=== PATIENT | female | born 1945 | race African-American/Black ===

== ENCOUNTER → 2018-07-24 | Day surgery (SDC) | payer MEDICARE ==
[2018-07-22 12:12] LABS: BASOPHILS % 0.5 % (0.0-1.0); EOSINOPHILS # (AUTO) 0.2 (0.0-0.4); EOSINOPHILS % 2.3 % (0.0-6.0); HEMATOCRIT 35.9 % (34.2-44.1); HEMOGLOBIN 11.8 g/dL (12.0-16.0); LYMPHOCYTES # (AUTO) 3.3 (1.0-3.2); LYMPHOCYTES % 41.6 % (18.0-39.1); MEAN CORPUSCULAR HEMOGLOBIN 29.9 pg (28-32); MEAN CORPUSCULAR HGB CONC 32.9 g/dL (31-35); MEAN CORPUSCULAR VOLUME 91.1 fL (81-99); MONOCYTES # (AUTO) 0.4 (0.2-0.8); MONOCYTES % 5.5 % (4.4-11.3); NEUTROPHILS % 49.8 % (38.7-80.0); PLATELET COUNT 247 x10e3/uL (140-360); RED BLOOD COUNT 3.94 x10e6/uL (3.6-5.1); RED CELL DISTRIBUTION WIDTH 13.3 % (11.7-14.4)
--- NOTE | 2018-07-22 13:10 | Diagnostic Imaging Report ---
EXAM: CHEST 2 VIEWS DATE: 07/22/2018 11:17 AM INDICATION: Preadmit, ganglion left thumb COMPARISON: None FINDINGS: Lines and tubes: None Heart size normal. The ascending thoracic aorta appears ectatic, particularly on the lateral view. No focal pulmonary opacity, pleural effusion or pneumothorax. Upper abdomen unremarkable. No acute bony abnormality. IMPRESSION: No evidence for acute disease. Likely ectasia of the ascending thoracic aorta. Signed by: Dr. Stephen Denton M.D. on 07/22/2018 1:07 PM
[~2018-07-24] MED LIST: ASPIR 8181 MG PO; BUPIVACAINE HCL 0.5% INJ 30 ML VIAL INJ ONE; CEFAZOLIN SOD 1 GM/NS 50ML 100 ML IV ONE; DEXAMETHASONE SOD PHOS INJ 4 MG/ML VIAL ONE; FENTANYL CITRATE/PF 100MCG/2 ML INJ ONE; HYDRALAZINE HCL 20 MG/ML VIAL ONE; KETOROLAC TROMETHAMINE 30 MG/ML VIAL ONE; LABETALOL HCL 20 MG/4 ML SYRINGE IV ONE; LIDOCAINE HCL 2% LOCAL INJ 5 ML SDV VIAL INJ ONE; METOCLOPRAMIDE HCL 10 MG/2ML VIAL ONE; NORVASC5 MG PO; ONDANSETRON HCL INJ 2MG/ML 2ML 2 MG/ML VIAL ONE; PANTOPRAZOLE SO40 MG PO; PROPOFOL IV EMULSION 10 MG/ML 20 ML VIAL ONE; QUINAPRIL HCL20 MG PO; SEVOFLURANE INHAL SOLN 250 ML PEN BTL ONE; TYLENOL COLD &1 EACH PO; TYLENOL WITH C1 EACH PO
--- OUTSIDE RECORDS SUMMARY | 2018-07-24 07:13 | XMS REPORT ---
Author Author [facility] Address Unknown Phone Unavailable Care Team Providers Care Sports Umpire Name Role Phone ELIANA SUAREZ Unavailable Unavailable Problems This patient has no known problems. Allergies, Adverse Reactions, Alerts This patient has no known allergies or adverse reactions. Medications This patient has no known medications. Results Test Description Test Time Test Comments Text Results Atomic Results Result Comments CHEST 2 VIEWS 2018-07-22 13:05:00 [place] [address] Patient Name: ELIAN RENAE MR #: [id number] : 1945 Age/Sex: 73/F Req #: [id number] Adm Physician: Ordered by: ELIANA SUAREZ MD Report #: [id number] Location: OR Room/Bed: Procedure: [id number] DX/CHEST 2 VIEWS Exam Date: Exam Time: REPORT STATUS: Signed EXAM: CHEST 2 VIEWS DATE: 07/22/2018 11:17 AM INDICATION: Preadmit, ganglion left thumb COMPARISON: None FINDINGS: Lines and tubes: None Heart size normal. The ascending thoracic aorta appears ectatic, particularly on the lateral view. No focal pulmonary opacity, pleural effusion or pneumothorax. Upper abdomen unremarkable. No acute bony abnormality. IMPRESSION: No evidence for acute disease. Likely ectasia of the ascending thoracic aorta. Signed by: Dr. Courtney Sahu M.D. on 07/22/2018 1:07 PM Dictated By: COURTNEY SAHU MD 1306 Transcribed By: MARY on 07/22/18 1302 COPY TO: ELIANA SUAREZ MD
--- OUTSIDE RECORDS SUMMARY | 2018-07-24 07:13 | XMS REPORT | Clinical Summary ---
Author Author [facility] Address Unknown Phone Unavailable Care Team Providers Care Kiln Firer Name Role Phone Julius Melo MD PCP Allergies No Known Allergies Medications End Date Status Medication Sig Dispensed Refills Start Date Active pantoprazole (PROTONIX) Take 40 mg by 0 40 MG EC tablet mouth daily. 8 Active quinapril (ACCUPRIL) 40 Take 40 mg by 0 07/21/ MG tablet mouth daily. 8 Active acyclovir (ZOVIRAX) 400 Take 800 mg 0 MG tablet by mouth daily. Active hydroCHLOROthiazide Take 25 mg by 0 (HYDRODIURIL) 25 MG mouth daily. tablet Active aspirin (ECOTRIN) 81 MG Take 81 mg by 0 enteric coated tablet mouth daily. Active amLODIPine (NORVASC) 5 mg Take 5 mg by 0 tablet mouth daily. 09/24/2017 hydroCHLOROthiazide Take 1 tablet 30 tablet 0 (HYDRODIURIL) 25 MG (25 mg total) 8 tablet by mouth daily for 30 days. 02/25/2018 tiZANidine (ZANAFLEX) 2 Take 1 tablet 20 tablet 0 MG tablet (2 mg total) 8 by mouth every 8 (eight) hours as needed for muscle spasms for up to 30 days. 02/05/2018 acetaminophen-codeine Take 1-2 15 tablet 0 (TYLENOL WITH CODEINE #3) tablets by 8 300-30 mg per tablet mouth every 6 (six) hours as needed for moderate pain for up to 10 days. Active Problems Not on file Encounters Care Team Description Date Type Specialty Danielle Lyles DO Pain of left upper extremity (Primary Dx); Essential hypertension 01/26/2018 Emergency Emergency Medicine Norinsky, Amilcar B., Hypertension, unspecified type (Primary Dx) 08/25/2017 Emergency Emergency Medicine after 07/23/2017 Social History Date Tobacco Use Types Packs/Day Years Used Never Smoker Smokeless Tobacco: Never Used Alcohol Use Drinks/Week oz/Week Comments Yes Social drinker. Sex Assigned at Date Recorded Not on file Industry Job Start Date Occupation Not on file Not on file Not on file Travel End Travel History Travel Start No recent travel history available. Last Filed Vital Signs Time Taken Vital Sign Reading 01/26/2018 3:15 PM CDT Blood Pressure 186/85 01/26/2018 3:15 PM CDT Pulse 72 01/26/2018 10:38 AM CDT Temperature 37.1 C (98.7 F) 01/26/2018 3:15 PM CDT Respiratory Rate 18 01/26/2018 3:15 PM CDT Oxygen Saturation 99% - Inhaled Oxygen - Concentration 01/26/2018 10:57 AM CDT Weight 59 kg (130 lb) 01/26/2018 10:38 AM CDT Height 149.9 cm (4' 11") 01/26/2018 10:57 AM CDT Body Mass Index 26.26 Plan of Treatment Health Maintenance Due Date Last Done Comments BREAST CANCER SCREENING 1997 COLON CANCER SCREENING 1997 SHINGLES VACCINES (#1) 1997 65+ PNEUMOCOCCAL VACCINE 2012 (1 of 2 - PCV13) PNEUMOCOCCAL 2012 POLYSACCHARIDE VACCINE AGE 65 AND OVER INFLUENZA VACCINE 12/19/2017 Procedures Comments Procedure Name Priority Date/Time Associated Diagnosis TROPONIN Timed 01/26/2018 2:35 PM CDT ECG 12-LEAD STAT 01/26/2018 11:01 AM CDT ZZESTIMATED GFR STAT 01/26/2018 10:49 AM CDT B NATRIURETIC PEPTIDE STAT 01/26/2018 10:49 AM CDT TROPONIN STAT 01/26/2018 10:49 AM CDT COMPREHENSIVE METABOLIC STAT 01/26/2018 PANEL 10:49 AM CDT HC COMPLETE BLD COUNT STAT 01/26/2018 W/AUTO DIFF 10:49 AM CDT ECG ED PRELIMINARY Routine 01/26/2018 INTERPRETATION 10:39 AM CDT URINALYSIS SCREEN AND Routine 08/25/2017 MICROSCOPY, WITH REFLEX 12:56 PM CDT TO CULTURE URINE CULTURE Routine 08/25/2017 12:56 PM CDT XR CHEST 1 VW PORTABLE STAT 08/25/2017 12:05 PM CDT ZZESTIMATED GFR STAT 08/25/2017 11:40 AM CDT CREATINE KINASE, TOTAL STAT 08/25/2017 (CPK) 11:40 AM CDT B NATRIURETIC PEPTIDE STAT 08/25/2017 11:40 AM CDT TROPONIN STAT 08/25/2017 11:40 AM CDT BASIC METABOLIC PANEL STAT 08/25/2017 11:40 AM CDT HC COMPLETE BLD COUNT STAT 08/25/2017 W/AUTO DIFF 11:[address] HEAD WO CONTRAST STAT 08/25/2017 11:37 AM CDT ECG ED PRELIMINARY Routine 08/25/2017 INTERPRETATION 10:44 AM CDT ECG 12-LEAD STAT 08/25/2017 10:36 AM CDT after 07/23/2017 Results * Troponin (01/26/2018 2:35 PM CDT) Only the most recent of 3 results within the time period is included. Troponin <0.30 0.00 - 0.30 ng/mL [facility] DEPARTMENT OF Comment: PATHOLOGY AND 0.11 - 1.49 GENOMIC MEDICINE ng/mlMay indicate increased risk of acute coronary syndrome. >=1.5 ng/ml Consistent with acute myocardial infarction. The diagnostic value of a single normal or non-diagnostic result is questionable.Serial samples at 2-6 hour intervals are required to rule out acute myocardial injury. Specimen Plasma specimen Performing Organization Address City/State/Zipcode Phone Number [facility] DEPARTMENT OF [address] [place] [address] PATHOLOGY AND GENOMIC MEDICINE * ECG 12 lead (01/26/2018 11:01 AM CDT) Only the most recent of 2 results within the time period is included. Ventricular rate 67 [facility] Atrial rate 67 [facility] AL interval 180 [facility] QRSD interval 94 [facility] QT interval 382 [facility] QTC interval 403 [facility] P axis 1 63 [facility] QRS axis 1 15 [facility] T wave axis 115 [facility] EKG impression Normal sinus rhythm-T wave [facility] abnormality, consider lateral ischemia-Abnormal ECG-In automated comparison with ECG of 25-AUG-2017 10:36,-No significant change was found- Performing Organization Address [facility] Phone Number [facility] [address] [place] [address] * Estimated GFR (01/26/2018 10:49 AM CDT) Only the most recent of 2 results within the time period is included. GFR Non Af Amer 49 (A) mL/min/1.73 m2 [facility] DE[facility]MENT OF PATHOLOGY AND GENOMIC MEDICINE GFR Af Amer 59 (A) mL/min/1.73 m2 [facility] DEPARTMENT OF Comment: PATHOLOGY AND Chronic kidney disease: <60 GENOMIC MEDICINE mL/min/1.73m2 Kidney failure: <15 mL/min/1.73m2 The estimated GFR is calculated from the IDMS-traceable Modification of Diet in Renal Disease Equation. The accuracy of the calculation is poor when the creatinine is normal. Calculated values >90 mL/min/1.73m2 are not reported. This equation has not been validated in children (<18 years), women, the elderly (>70 years), or ethnic groups other than Caucasians and Americans. Specimen Plasma specimen Performing Organization Address City/State/Zipcode Phone Number [facility] DEPARTMENT OF [address] [place] [address] PATHOLOGY AND GENOMIC MEDICINE * CBC with platelet and differential (01/26/2018 10:49 AM CDT) Only the most recent of 2 results within the time period is included. WBC 7.6 4.2 - 11.0 k/uL [facility] DE[facility] OF PATHOLOGY AND GENOMIC MEDICINE RBC 3.54 (L) 4.04 - 5.86 m/uL [facility] DE[facility]MENT OF PATHOLOGY AND GENOMIC MEDICINE HGB 11.0 (L) 11.5 - 15.3 g/dL [facility]MENT OF PATHOLOGY AND GENOMIC MEDICINE HCT 34.6 34.0 - 45.0 % [facility] DE[facility] OF PATHOLOGY AND GENOMIC MEDICINE MCV 97.7 80.0 - 98.0 fL [facility] OF PATHOLOGY AND GENOMIC MEDICINE MCH 31.1 27.0 - 34.0 pg [facility] DE[facility]MENT OF PATHOLOGY AND GENOMIC MEDICINE MCHC 31.8 31.5 - 36.5 g/dL [facility] DE[facility]MENT OF PATHOLOGY AND GENOMIC MEDICINE RDW - SD 49.6 37.0 - 51.0 fL [facility] OF PATHOLOGY AND GENOMIC MEDICINE MPV 10.3 7.4 - 10.4 fL [facility] OF PATHOLOGY AND GENOMIC MEDICINE Platelet count 213 150 - 400 k/uL [facility] OF PATHOLOGY AND GENOMIC MEDICINE Nucleated RBC 0.00 /100 WBC [facility] OF PATHOLOGY AND GENOMIC MEDICINE Neutrophils 57.3 36.0 - 66.0 % [facility] OF PATHOLOGY AND GENOMIC MEDICINE Lymphocytes 34.9 24.0 - 44.0 % [facility] OF PATHOLOGY AND GENOMIC MEDICINE Monocytes 4.0 0.0 - 6.0 % [facility] OF PATHOLOGY AND GENOMIC MEDICINE Eosinophils 3.2 0.0 - 6.0 % [facility] OF PATHOLOGY AND GENOMIC MEDICINE Basophils 0.3 0.0 - 1.2 % [facility] OF PATHOLOGY AND GENOMIC MEDICINE Immature granulocytes 0.3 0.0 - 1.0 % [facility] OF PATHOLOGY AND GENOMIC MEDICINE Specimen Blood Performing Organization Address City/[facility]/[place] [address] PATHOLOGY AND GENOMIC MEDICINE * B natriuretic peptide (01/26/2018 10:49 AM CDT) Only the most recent of 2 results within the time period is included. BNP 15 0 - 100 pg/mL [facility] OF PATHOLOGY AND GENOMIC MEDICINE Specimen Blood Performing Organization Address City/[facility]/Zipcode Phone Number [facility] [address] [place] [address] PATHOLOGY AND GENOMIC MEDICINE * Comprehensive metabolic panel (01/26/2018 10:49 AM CDT) Sodium 140 135 - 150 mEq/L [facility] OF PATHOLOGY AND GENOMIC MEDICINE Potassium 3.8 3.5 - 5.0 mEq/L [facility] OF PATHOLOGY AND GENOMIC MEDICINE Chloride 106 98 - 112 mEq/L [facility] OF PATHOLOGY AND GENOMIC MEDICINE CO2 24 24 - 31 mmol/L [facility] OF PATHOLOGY AND GENOMIC MEDICINE Anion gap 10@ANIO 7 - 15 mEq/L [facility] OF PATHOLOGY AND GENOMIC MEDICINE BUN 21 (H) 7 - 18 mg/dL [facility] OF PATHOLOGY AND GENOMIC MEDICINE Creatinine 1.10 (H) 0.50 - 0.90 mg/dL [facility] OF PATHOLOGY AND GENOMIC MEDICINE Glucose 199 (H) 65 - 100 mg/dL [facility] OF PATHOLOGY AND GENOMIC MEDICINE Calcium 8.7 (L) 8.8 - 10.2 mg/dL [facility] OF PATHOLOGY AND GENOMIC MEDICINE Protein 6.6 6.3 - 8.3 g/dL [facility] OF PATHOLOGY AND GENOMIC MEDICINE Albumin 3.6 3.5 - 5.0 g/dL [facility] OF PATHOLOGY AND GENOMIC MEDICINE A/G ratio 1.2 0.7 - 3.8 [facility] OF PATHOLOGY AND GENOMIC MEDICINE Alkaline phosphatase 85 0 - 104 U/L [facility] OF PATHOLOGY AND GENOMIC MEDICINE AST 19 10 - 35 U/L [facility] OF PATHOLOGY AND GENOMIC MEDICINE ALT 15 5 - 50 U/L [facility] OF PATHOLOGY AND GENOMIC MEDICINE Total bilirubin 0.3 0.2 - 1.2 mg/dL [facility] OF PATHOLOGY AND GENOMIC MEDICINE Specimen Plasma specimen Performing Organization Address City/State/Zipcode Phone Number [facility] DEPARTMENT OF [facility] [place] [address] PATHOLOGY AND GENOMIC MEDICINE * ECG ED Preliminary Interpretation - NOT AN ORDER (01/26/2018 10:39 AM CDT) Only the most recent of 2 results within the time period is included. Narrative Performed At Danielle Lyles DO 01/26/20182:51 PM ECG ED Preliminary Interpretation - Not an Order Performed by: DANIELLE LYLES Authorized by: DANIELLE LYLES ECG reviewed by ED Physician in the absence of a bulkhead carpenter: yes Previous ECG: Previous ECG:Compared to current Comparison ECG info:08/25/17 Similarity:No change Interpretation: Interpretation: normal Rate: ECG rate:67 ECG rate assessment: normal Rhythm: Rhythm: sinus rhythm Ectopy: Ectopy: none QRS: QRS axis:Normal Conduction: Conduction: normal ST segments: ST segments:Non-specific T waves: T waves: inverted Inverted:I and aVL * Urinalysis screen and microscopy, with reflex to culture (08/25/2017 12:56 PM CDT) Specimen site Clean catch [facility] OF PATHOLOGY AND GENOMIC MEDICINE Color, UA Straw [facility] OF PATHOLOGY AND GENOMIC MEDICINE Appearance, UA Clear [facility] OF PATHOLOGY AND GENOMIC MEDICINE Specific gravity, UA 1.014 1.001 - 1.035 [facility] OF PATHOLOGY AND GENOMIC MEDICINE pH, UA 6.0 5.0 - 8.5 [facility] OF PATHOLOGY AND GENOMIC MEDICINE Protein, UA Negative Negative [facility] OF PATHOLOGY AND GENOMIC MEDICINE Glucose, UA 1+ (A) Negative [facility] OF PATHOLOGY AND GENOMIC MEDICINE Ketones, UA Negative Negative [facility] OF PATHOLOGY AND GENOMIC MEDICINE Bilirubin, UA Negative Negative [facility] OF PATHOLOGY AND GENOMIC MEDICINE Blood, UA Negative Negative [facility] OF PATHOLOGY AND GENOMIC MEDICINE Nitrite, UA Negative Negative [facility] OF PATHOLOGY AND GENOMIC MEDICINE Urobilinogen, UA Negative <2.0 [facility] OF PATHOLOGY AND GENOMIC MEDICINE Leukocyte esterase, UA Negative Negative [facility] OF PATHOLOGY AND GENOMIC MEDICINE WBC, UA 1 0 - 5 /HPF [facility] OF PATHOLOGY AND GENOMIC MEDICINE RBC, UA 2 0 - 5 /HPF [facility] OF PATHOLOGY AND GENOMIC MEDICINE Bacteria, UA None seen None seen [facility] OF PATHOLOGY AND GENOMIC MEDICINE Yeast, UA None seen [facility] OF PATHOLOGY AND GENOMIC MEDICINE Yeast with pseudohyphae, None seen [facility] OF UA PATHOLOGY AND GENOMIC MEDICINE Specimen Urine Performing Organization Address [facility]ode Phone Number [address] [address] PATHOLOGY AND GENOMIC MEDICINE * Urine culture (08/25/2017 12:56 PM CDT) Urine culture SEE COMMENTComment: [facility] DEPARTMENT OF Bacteriuria screen negative. PATHOLOGY AND GENOMIC MEDICINE Specimen Urine Performing Organization Address [facility] Centercode Phone Number [address] [address] PATHOLOGY AND GENOMIC MEDICINE * XR Chest 1 Vw Portable (08/25/2017 12:05 PM CDT) Narrative Performed At EXAMINATION:XR CHEST 1 VW PORTABLE [facility] CLINICAL HISTORY:Hypertension XR CHEST 1 VW PORTABLEimages are submitted COMPARISON:NONE FINDINGS: The cardiac silhouette is normal in size. The pulmonary vasculature is within normal limits. The lung zones have no focal area of consolidation. There is no pleural effusion or pneumothorax. IMPRESSION: 1. There is no acute cardiopulmonary disease. [id number] Procedure Note Hm Interface, Radiology Results Incoming - 08/25/2017 12:11 PM CDT EXAMINATION: XR CHEST 1 VW PORTABLE CLINICAL HISTORY: Hypertension XR CHEST 1 VW PORTABLE images are submitted COMPARISON: NONE FINDINGS: The cardiac silhouette is normal in size. The pulmonary vasculature is within normal limits. The lung zones have no focal area of consolidation. There is no pleural effusion or pneumothorax. IMPRESSION: 1. There is no acute cardiopulmonary disease. [facility]-[id number] Performing Organization Address City/State/Zipcode Phone Number [facility] [address] [place] [address] * Creatine kinase, total (CPK) (08/25/2017 11:40 AM CDT) Creatine kinase 98 61 - 224 U/L [facility] DE[facility]MENT OF PATHOLOGY AND GENOMIC MEDICINE Specimen Plasma specimen Performing Organization Address City/[facility]/Zipcode Phone Number [address] [address] PATHOLOGY AND GENOMIC MEDICINE * Basic metabolic panel (08/25/2017 11:40 AM CDT) Sodium 142 135 - 150 mEq/L [facility]MENT OF PATHOLOGY AND GENOMIC MEDICINE Potassium 3.7 3.5 - 5.0 mEq/L [facility] OF PATHOLOGY AND GENOMIC MEDICINE Chloride 109 100 - 109 mEq/L [facility] OF PATHOLOGY AND GENOMIC MEDICINE CO2 27 24 - 32 mmol/L [facility] OF PATHOLOGY AND GENOMIC MEDICINE Anion gap 6 (L) 7 - 15 mEq/L [facility] OF Comment: PATHOLOGY AND Starting from August [facility] , anion gap calculation no longer incorporates potassium. Please note the change. BUN 20 (H) 7 - 18 mg/dL [facility] OF PATHOLOGY AND GENOMIC MEDICINE Creatinine 1.2 0.8 - 1.5 mg/dL [facility] OF PATHOLOGY AND GENOMIC MEDICINE Glucose 99 65 - 100 mg/dL [facility] OF PATHOLOGY AND GENOMIC MEDICINE Calcium 8.8 8.6 - 10.7 mg/dL [facility]MENT OF PATHOLOGY AND GENOMIC MEDICINE Specimen Plasma specimen Performing Organization Address City/State/Zipcode Phone Number [facility] DEPARTMENT OF [address] [place] [address] PATHOLOGY AND GENOMIC MEDICINE * CT Head Wo Contrast (08/25/2017 11:37 AM CDT) Narrative Performed At Examination: CT HEAD WO CONTRAST [facility] Clinical History: Hypertension, headache Comparison: NONE Technique: Multiple axial CT images of the brain are obtained without the use of intravenous contrast. CT scans are performed using radiation dose reduction techniques. Technical factors are evaluated and adjusted to ensure appropriate moderation of exposure. Automated dose management technology is applied to adjust radiation dose to minimize exposure, while achieving a diagnostic image. FINDINGS: The visualized paranasal sinuses are clear. The mastoid air cells are well aerated. The globes and optic nerves are unremarkable. The ventricles are symmetrical. There is no mass effect or any midline shift. There is no evidence of any extra-axial fluid collection. There is no parenchymal hemorrhage or mass lesion. There is maintenance of the dykes-white junction. The posterior fossa does not demonstrate any masses. IMPRESSION: 1. There Is no acute intracranial abnormality. [facility]-[id number] Procedure Note Hm Interface, Radiology Results Incoming - 08/25/2017 11:42 AM CDT Examination: CT HEAD WO CONTRAST Clinical History: Hypertension, headache Comparison: NONE Technique: Multiple axial CT images of the brain are obtained without the use of intravenous contrast. CT scans are performed using radiation dose reduction techniques. Technical factors are evaluated and adjusted to ensure appropriate moderation of exposure. Automated dose management technology is applied to adjust radiation dose to minimize exposure, while achieving a diagnostic image. FINDINGS: The visualized paranasal sinuses are clear. The mastoid air cells are well aerated. The globes and optic nerves are unremarkable. The ventricles are symmetrical. There is no mass effect or any midline shift. There is no evidence of any extra-axial fluid collection. There is no parenchymal hemorrhage or mass lesion. There is maintenance of the dykes-white junction. The posterior fossa does not demonstrate any masses. IMPRESSION: 1. There Is no acute intracranial abnormality. [id number] Performing Organization Address City/State/Zipcode Phone Number [facility] [address] [place] [address] after 07/23/2017 Insurance Payer Benefit Subscriber ID Type Phone Address Plan / Group [employer] xxxxxxxxx O [facility] Advance Directives Patient has advance care planning documents on file. For more information, jose eduardo turk contact: Gurmeet Jackson [address] [place] [address]
[2018-07-24 12:45] VITALS: BP 136/83
--- NOTE | 2018-07-25 02:08 | Operative Report ---
DATE OF PROCEDURE: 07/24/2018 SURGEON: Anurag Platt MD PREOPERATIVE DIAGNOSIS: Left thumb ganglion cyst, right index and long finger trigger. POSTOPERATIVE DIAGNOSIS: Left thumb ganglion cyst, right index and long finger trigger. OPERATION/PROCEDURE PERFORMED: 1. The patient underwent an excision of the left thumb ganglion cyst. 2. Release of a right index finger trigger. 3. Release of a right long finger trigger. GRAIN WEIGHER: None. ANESTHESIA: General endotracheal intubation anesthesia. IV FLUIDS: Per the Anesthesia records. BRIEF DISCUSSION OF THE PATIENT'S OPERATIVE PROCEDURE: Ms. Swan was taken to the operating room and placed in a supine position on the operating room table. Following the induction of general anesthesia as well as endotracheal intubation, the patient's left upper extremity was examined under anesthesia. She was found to have a palpable mass at the level of the metacarpophalangeal joint for the thumb. This mass was stucked to the soft tissues. The patient's upper extremity was prepped and draped in a standard surgical fashion. The case was began by creating an incision overlying the mass. This incision was carried through the skin only. Blunt dissection was used to deepen the incision and a ganglion cyst was identified. The cyst had a large base arising from the metacarpophalangeal joint of the thumb. The cyst was excised in toto. The sutures were then used to close the capsule from the joint. The remaining soft tissues were closed in a multilayer fashion. Sterile dressings were applied to the left thumb. Attention was then turned to the right hand. The patient had palpable nodules at the level of the A1 vianey for the index and long finger. Flexion of these fingers resulted in catching and locking. An incision was created overlying the A1 vianey for the index finger. This incision was carried through the skin only. Blunt dissection was used to deepen the incision to the level of the A1 vianey. Retractors were used to retract the neurovascular bundles. The A1 vianey was released and the underlying tendon was evaluated. She was found to have nodular tenosynovitis without other abnormalities. The finger was placed in motion and the preoperative catching and locking no longer occurred. The wound was irrigated and closed in a single layer fashion. Attention was then turned to the long finger. An incision was created over the A1 vianey. This incision was carried through the skin only. Blunt dissection was used to deepen the incision to the level of the flexor tendon to the A1 vianey. Retractors were placed within the wound, protecting the neurovascular structures. The A1 vianey was then released. The underlying tendon was evaluated and found to have nodular tenosynovitis without other abnormality. The long finger was placed for range of motion and the finger glided smoothly without further catching or locking. The wound was copiously irrigated and then closed. Sterile dressings were applied and the patient was then awakened and taken to the Postanesthesia Care Unit in stable condition. MD KYARA Bright/RIP /[id number]
== END | disposition home or self-care (01) ==
LOC: OR 07:11
PROVIDERS: ATTEND Specialist
DX: M67.442 Ganglion, left hand (principal); M65.321 Trigger finger, right index finger; M65.331 Trigger finger, right middle finger; M19.041 Primary osteoarthritis, right hand; M19.042 Primary osteoarthritis, left hand; I10 Essential (primary) hypertension; I49.3 Ventricular premature depolarization; Z01.810 Encounter for preprocedural cardiovascular examination; Z01.812 Encounter for preprocedural laboratory examination; Z01.818 Encounter for other preprocedural examination; Z79.82 Long term (current) use of aspirin; Z68.31 Body mass index [BMI] 31.0-31.9, adult; Z85.43 Personal history of malignant neoplasm of ovary
CPT/HCPCS: 26055 ×2; 26160; 36415; 71046; 85025; 93005; J0360; J0690; J1100; J1885; J2001; J2405; J2704; J2765